=== PATIENT | male | born 1970 | race Caucasian/White ===

== ENCOUNTER 2017-09-03 20:26 | Emergency (ER) | payer OTHER ==
[~2017-09-03] VITALS: Ht 177.8 cm; Wt 114.0 kg
[2017-09-03 21:00] LABS: MCH 30.5 PG (29.0-34.0); MCV 84.7 FL (86-99); PLATELET COUNT 194 K/uL (156-360); RBC DIS.WIDTH-SD 36.6 % (39-53); RED BLOOD COUNT 5.31 M/uL (4.00-5.50)
[2017-09-03 21:11] LABS: CHLORIDE 101 mEq/L (99-109); POTASSIUM 3.8 mEq/L (3.7-5.4); SODIUM 133 mEq/L (136-147)
[2017-09-03 21:12] LABS: GLUCOSE 104 mg/dL (70-99)
[2017-09-03 21:14] LABS: ANION GAP 6 MEQ/L (2-14)
[2017-09-03 21:16] LABS: GFR ESTIMATE (CALCULATED) > 59 mL/min/
[2017-09-03 21:17] LABS: UREA NITROGEN (BUN) 10 mg/dL (9-23)
[2017-09-03 21:24] LABS: TROP-I INTERPRETATION NEGATIVE; TROPONIN-I < 0.01 ng/mL (0.0-0.30)
[2017-09-04 00:16] LABS: TROP-I INTERPRETATION NEGATIVE; TROPONIN-I < 0.01 ng/mL (0.0-0.30)
[2017-09-04 00:42] VITALS: BP 120/87
== END 2017-09-04 00:43 | disposition home or self-care (01) ==
LOC: EME 20:26
PROVIDERS: Physician Assistant
DX: R07.9 Chest pain, unspecified (principal); I10 Essential (primary) hypertension
CPT/HCPCS: 71020; 80048; 84484; 85027; 93005; 99281; 99284